=== PATIENT | male | born 1990 | race Caucasian/White ===

== ENCOUNTER 2016-07-22 09:57 | Emergency (ER) | payer OTHER ==
[2016-07-22 10:00] VITALS: BP 129/69; BMI 28.8
--- NOTE | 2016-07-22 10:23 | DR.GENAD ---
HPI - PCP Primary Care Physician: NFD - Complaint/Symptoms Chief Complaint:: PATIENT HAS "EXTREMLY BAD TOOTHACHE " THAT STARTED 3 DAYS AGO. - Nurses notes reviewed Nurses Notes Review: Yes - Source History Provided: Patient - Mode of Arrival Mode of Arrival: Ambulatory - Timing Onset of Chief Complaint: 07/19/16 Came on: Gradually - Duration Duration: Constant How lon Duration: Days - Severity Severity: Moderate - Modifying Factors Improves:: pain meds - Associated Signs and Symptoms Associated Signs and Symptoms: pain PMH - PMH Past Medical History: No Past Surgical History: Yes Past Surgical History Comment: TUBES IN EAR - Family History History of Family Medical Conditions: No - Social History Does patient currently use any type of tobacco product: Yes Have you used tobacco products in the last 12 months: Yes Type of Tobacco Use: Cigarettes Does any household member use tobacco: No Alcohol Use: None Do you use any recreational Drugs:: No Lives With: Family Lives Where: Home - infectious screening In the last 2 months have you had wt loss of >10#?: NO Have you had fever, night sweats or hemotysis?: No Have you traveled outside the country in the last 6 months?: No Isolation: Standard ROS - Review of Systems Constitutional: No Symptoms Reported Eyes: No Symptoms Reported ENTM: Mouth Pain (toothache) Respiratoy: No Symptoms Reported Cardiovascular: No Symptoms Reported Gastrointestinal/Abdominal: No Symptoms Reported Genitourinary: No Symptoms Reported Neurological: No Symptoms Reported Musculoskeletal: No Symptoms Reported Integumentary: No Symptoms Reported Hematologic/Lymphatic: No Symptoms Reported Endocrine: No Symptoms Reported Psychiatric: No Symptoms Reported PE - Vital Signs Vitals: Temperature 97.6 F Pulse Rate 51 Respiratory Rate 18 Blood Pressure 129/69 O2 Sat by Pulse Oximetry 99 - General Limitations: No Limitations General Appearance: Alert, In No Apparent Distress - Head Head Exam: Normal Inspection - Eyes Eye exam: Normal Appearance, EOMI. negative: Scleral Icterus, Conjunctival Injection - ENT ENT Exam: Normal Oropharynx, Other (poor dentition, fx teeth) External Ear Exam: Normal External Inspection Nose Exam: Normal Nose Exam Mouth Exam: Normal Inspection Throat Exam: Normal Inspection - Neck Neck Exam: Normal Inspection, Full ROM, Trachea Midline - Chest Chest Inspection: Normal Inspection - Respiratory Respiratory Exam: negative: Accessory Muscle Use, Respiratory Distress Respiratory Exam: Bilateral Clear to Auscultation - Extremities Extremities Exam: Normal Inspection, Full ROM - Back Back Exam: Normal Inspection - Neurologic Neurological Exam: Alert, Oriented X3, CN II-XII Intact - Psychiatric Psychiatric Exam: Flat Affect - Skin Skin Exam: Intact, Normal Color - Diagnosis Discharge Problem: Toothache - Discharge Plan Condition: Stable Prescriptions: Amoxicillin [Amoxil 875 mg] 875 mg PO BID #20 tab Tramadol HCl [ULTRAM 50 MG *] 50 mg PO Q8H PRN #15 tab PRN Reason: Pain - Follow ups/Referrals Follow ups/Referrals: NFD,None [Primary Care Provider] - 3 days - Instructions
[2016-07-22] MEDS ORDERED: TORADOL 60 MG VIAL IM ONE (10:45)
[2016-07-22] MEDS ORDERED: TORADOL 60 MG VIAL ONE (10:52)
== END 2016-07-22 11:03 | disposition home or self-care (01) ==
LOC: ER 10:04
DX: K08.89 Other specified disorders of teeth and supporting structures (principal)
CPT/HCPCS: 96372; 99281; 99282; J1885

== ENCOUNTER 2016-08-21 07:29 | Emergency (ER) | payer OTHER ==
[2016-08-21 07:33] VITALS: BP 130/78; BMI 24.3
[2016-08-21] MEDS ORDERED: TORADOL 60 MG VIAL IM ONE (08:16)
[2016-08-21] MEDS ORDERED: TORADOL 60 MG VIAL ONE (08:19)
--- NOTE | 2016-08-21 08:50 | DR.TOOTHHP ---
HPI - Time Seen Time seen: 08:05 - Primary Care Physician Primary Care Physician: NFD - Complaints Chief Complaint Doctors Comments: SORE THROAT. SWOLLEN LEFT GLANDS Chief Complaint:: PT. C/O TOOTHACHE X 3 DAYS. PT. STATES THE PAIN IS MORE UNDER THE LEFT SIDE OF JAW. PT. HAS BEEN ON AMOXICILLIN AND IS OUT OF HIS PAIN MEDICATION THAT WAS PRESCRIBED. - Reviewed Nurses Notes Reviewed: Yes - Source History Provided: Patient - Mode of Arrival Mode of Arrival: Ambulatory - Timing Onset of Chief Complaint: 08/18/16 - Severity Pain Severity: Moderate - Location Location:: Right, Left, Upper, Lower, Teeth, Gums - Context Onset:: Spontaneous, Previous Caries History Of: None - Modifying Factors Worsens:: Nothing Improves:: Analgesics not used - Associated Signs and Symptoms Associated signs and symptoms: Earache (LT), Sore Throat PMH - PMH Past Medical History: No Past Surgical History: Yes Surgical History: Other Past Surgical History Comment: TUBES IN EARS - Family History History of Family Medical Conditions: No - Social History Does patient currently use any type of tobacco product: Yes Have you used tobacco products in the last 12 months: Yes Type of Tobacco Use: Cigarettes Does any household member use tobacco: No Alcohol Use: None Do you use any recreational Drugs:: No Lives With: Family Lives Where: Home - infectious screening In the last 2 months have you had wt loss of >10#?: NO Have you had fever, night sweats or hemotysis?: No Have you traveled outside the country in the last 6 months?: No Isolation: Standard ROS - Review of Systems Constitutional: No Symptoms Reported Eyes: No Symptoms Reported. negative: Eye Pain, Discharge ENTM: Ear Pain (LT), Throat Pain. negative: Nose Discharge, Nose Congestion Respiratoy: Non-Productive Cough. negative: Productive Cough, Short of Breath, Wheezing, Hemoptysis Cardiovascular: Chest Pain Gastrointestinal/Abdominal: Abdominal Pain Genitourinary: No Symptoms Reported. negative: Dysuria, Frequency, Hematuria Neurological: No Symptoms Reported, Headache. negative: Weakness, Dizziness Musculoskeletal: Neck Pain (LEFT NECK GLAND SWELLING AND PAIN.) Integumentary: No Symptoms Reported Hematologic/Lymphatic: No Symptoms Reported Endocrine: No Symptoms Reported All Other Systems: Reviewed and Negative PE - Vital Signs Vitals: Temperature 98.2 F Pulse Rate 79 Respiratory Rate 18 Blood Pressure 130/78 O2 Sat by Pulse Oximetry 97 - General Limitations: No Limitations General Appearance: Alert - Head Head Exam: Normal Inspection - Eyes Eye exam: Normal Appearance - ENT ENT Exam: Normal External Ear Exam External Ear Exam: Normal External Inspection TM/Canal Exam: Bilateral Normal Nose Exam: Normal Nose Exam Mouth Exam: Normal Inspection Teeth Exam: Dental Tenderness # (LOWER AND UPPER LEFT MOLARS.) Throat Exam: Tonsillar Erythema (LT), Tonsillomegaly (LT). negative: Tonsillar Exudate - Neck Neck Exam: Trachea Midline, Tenderness (LT SUBMANDIBULAR AND ANTERIOR CERVICAL LYMPH NONE ENLARGEMENT AND TENDERNESS.) - Chest Chest Inspection: Symmetric Chest Wall Rise - Respiratory Respiratory Exam: Normal Lung Sounds Bilat Respiratory Exam: Bilateral Clear to Auscultation - Cardiovascular Cardiovascular Exam: Regular Rate, Normal Rhythm, Irregular Rhythm - Abdominal Exam Abdominal Exam: Normal Bowel Sounds, Soft. negative: Tenderness - Extremities Extremities Exam: Normal Inspection - Back Back Exam: Normal Inspection - Neurologic Neurological Exam: Alert, Oriented X3, CN II-XII Intact. negative: Motor Sensory Deficit - Psychiatric Psychiatric Exam: Anxious - Skin Skin Exam: Normal Color MDM - Differential diagnosis Differential Diagnosis: Other (CERVICAL ADENOPATHY, DENTAL INFECTION, GINGIVITIS ) Course - Treatment Treatment: SEE ORDERS - Education/Counseling Education/Counseling: Patient, Education Educated On: Diagnosis, Needs for Follow Up ROR - Labs Reviewed Laboratory Results Reviewed?: Yes Laboratory: Streptococcus Screen Negative (NEGATIVE) 08/21/16 08:28 - Diagnosis Discharge Problem: Dental infection, Cervical adenitis, Gingivitis - Discharge Plan Disposition: HOME, SELF-CARE Condition: Stable Prescriptions: Acetaminophen W/ Codeine [Tylenol/Codeine #3 300-30 mg] 1 tab PO Q6H PRN #15 tab PRN Reason: Pain Clindamycin HCl 300 mg PO Q6H #40 cap Ibuprofen [MOTRIN TAB 600 MG *] 600 mg PO TID PRN #20 tab PRN Reason: Pain/Inflammation - Follow ups/Referrals Follow ups/Referrals: NFD,None [Primary Care Provider] - 3 days - Instructions Instructions: Dental Abscess, Lymphadenopathy, Sore Throat, [id number] Additional Instructions: RETURN TO ED IF WORSE. DENTIST FOLLOW UP THIS WEEK.
== END 2016-08-21 09:07 | disposition home or self-care (01) ==
LOC: ER 07:39
DX: K04.7 Periapical abscess without sinus (principal); I88.8 Other nonspecific lymphadenitis; K05.10 Chronic gingivitis, plaque induced
CPT/HCPCS: 87070; 87880; 96372; 99282; J1885